=== PATIENT | female | born 1965 | race Caucasian/White ===

== ENCOUNTER 2021-09-12 13:37 | Outpatient (CLI) | payer BC | END 2021-09-12 13:38 | disposition home or self-care (01) | LOC: CSHMAMMO 13:37 | PROVIDERS: ATTEND Student in an Organized Health Care Education/Training Program | DX: R92.8 Other abnormal and inconclusive findings on diagnostic imaging of breast (principal); N63.12 Unspecified lump in the right breast, upper inner quadrant | CPT/HCPCS: G0279 ==

== ENCOUNTER → 2021-09-16 | Day surgery (SDC) | payer BC | LOC: CSHULT 09:00 | PROVIDERS: ATTEND Family Medicine | PROC: 0H9T3ZX Drainage of Right Breast, Percutaneous Approach, Diagnostic (ICD-10-PCS; principal; 2021-09-16) | DX: C50.211 Malignant neoplasm of upper-inner quadrant of right female breast (principal) | CPT/HCPCS: 19083; 88305; 88341; 88342 ==

== ENCOUNTER 2021-12-16 10:32 | Outpatient (CLI) | payer BC | END 2021-12-16 10:33 | disposition home or self-care (01) | LOC: CSHRAD 10:32 | PROVIDERS: ATTEND Surgery | DX: R50.9 Fever, unspecified (principal) | CPT/HCPCS: 71045 ==

== ENCOUNTER 2022-04-06 09:06 | Outpatient (CLI) | payer BC | END 2022-04-06 09:07 | disposition home or self-care (01) | LOC: CSHMAMMO 09:06 | PROVIDERS: ATTEND Surgery | DX: Z08 Encounter for follow-up examination after completed treatment for malignant neoplasm (principal); Z85.3 Personal history of malignant neoplasm of breast | CPT/HCPCS: G0279 ==

== ENCOUNTER 2022-10-08 09:42 | Outpatient (CLI) | payer BC | END 2022-10-08 09:43 | disposition home or self-care (01) | LOC: CSHMAMMO 09:42 | PROVIDERS: ATTEND Surgery | DX: C50.911 Malignant neoplasm of unspecified site of right female breast (principal) | CPT/HCPCS: 77066; G0279 ==